=== PATIENT | female | born 1970 | race Two or more races ===

== ENCOUNTER 2016-11-15 15:55 | Emergency (ER) | payer SELFPAY ==
[2016-11-15 16:04] VITALS: BP 129/64; PULSE 62; RESP 17; TEMP 98.1; O2SAT 95
[2016-11-15] MEDS ORDERED: DEXAMETHASONE 4 MG TAB PO ONE (16:26)
[2016-11-15] MEDS ORDERED: hydrOXYzine HCL 25 MG TAB PO ONE (16:28)
--- NOTE | 2016-11-15 16:35 | EDPHY ---
General Narrative: CHIEF COMPLAINT: Rash HISTORY OF PRESENT ILLNESS: patient has a rash over most of her body is been present for over 3 months. It was gradual onset. It has been constant duration. Mild at 1st but now very bothersome to her. Very pruritic to her. Worse with exposure to certain temperatures of water. She has scratched the point that it is blood in some locations. It is on the abdomen, back, arms and legs. It is not on the face. On the palms of the hands or the back of the hands. No fever or chills. No blood thinners. No headache or neck pain. No travel for an ocular lesions. She has been seen at [facility] and diagnosed with a rash and been treated with short course of oral steroid and topical steroid. This was over 3 months ago. No improvement with this. No other associated complaints or modifying factors. All information obtained with the use of the [facility] certified Serbian russian language instructor at bedside. REVIEW OF SYSTEMS: Ten systems reviewed and are negative unless otherwise noted in the HPI EXAMINATION General Appearance: Alert, no distress Head: normocephalic, atraumatic Eyes: Pupils equal and round, no conjunctival pallor or injection ENT, Mouth: Mucous membranes moist . No petechiae or purpura. Uvula midline. No swelling or erythema. Neck: Normal inspection, supple, non-tender . Painless range of motion all planes. No meningismus. Respiratory: Lungs are clear to auscultation Cardiovascular: Regular rate and rhythm . No murmur. Gastrointestinal: Abdomen is soft and nontender . Rash noted. Back: non-tender, no bony abnormalities . Rash noted. Neurological: A&O, nonfocal, normal gait . Strength is symmetric in all limbs. Skin: Warm and dry. There is diffuse rash over the abdomen, lower back, arms and legs. This is primarily over the extensor surface. It is silver -salmon, plaque-like appearance. Consistent with psoriasis. No petechiae. No purpura. No target or bull's eye lesions. Extremities: Nontender, no pedal edema Psychiatric: Mood and affect normal DIFFERENTIAL DIAGNOSES: Including but not limited to Psoriasis, dermatitis, pruritic rash MDM: 4:30 p.m. rash to the trunk and extensor surfaces of all 4 limbs. Also present on the back. It is consistent with psoriasis in appearance. There are some excoriations that do not appear to be infected. She has no lesions of the mouth , lips or tongue. The airway is patent. No acute distress. Treat with short course of steroids and recommend follow up with [facility] for long-term therapy to discuss higher level of medication. The patient is comfortable with this plan. She is to continue the topical corticosteroid that were prescribed to her by [facility]. SUPERVISION: This patient was independently evaluated without the aide of supervising physician. - History Smoking Status: Never smoked - Objective Vital Signs: Initial Vital Signs Temperature (C) 98.1 F 11/15/16 16:01 Heart Rate 62 11/15/16 16:01 Respiratory Rate 17 11/15/16 16:01 Blood Pressure 129/64 H 11/15/16 16:01 O2 Sat (%) 95 11/15/16 16:01 O2 Delivery Mode Room Air Allergies/Adverse Reactions: No Known Allergies Allergy (Verified 11/15/16 15:58) Home Medications: Medication Instructions Recorded Toprol 02/26/14 FLUoxetine 11/15/16 Lisinopril 11/15/16 Metoprolol Succinate 11/15/16 hydrOXYzine HCL [Hydroxyzine HCl] 50 mg PO Q6-8PRN PRN #20 tablet 11/15/16 predniSONE [Deltasone] 60 mg PO DAILY #15 tablet 11/15/16 Medications Given: Discontinued Medications Dexamethasone (Decadron) 8 mg PO EDNOW ONE Stop: 11/15/16 16:27 Last Admin: 11/15/16 16:30 Dose: 8 mg Hydroxyzine HCl (Hydroxyzine Hcl) 25 mg PO Q6HRS ONE Stop: 11/15/16 16:29 Last Admin: 11/15/16 16:55 Dose: 25 mg Departure - Departure Disposition: Home, Routine, Self-Care Clinical Impression: Psoriasis, Pruritic dermatitis Condition: Good Instructions: Psoriasis (ED), Acute Rash (ED), Dermatitis (ED) Additional Instructions: Follow-up with [facility] and [facility] for definitive care. Attempt Selsun Blue (green label) for scalp involvement. Jim un seguimiento con el dermatologo y con la clinica [facility] para cuidado definitivo. Intente Selsun Blue (etiqueta jose) para la implicacion del cuero cabelludo. Referrals: [facility],UN[facility] [Other] - As per Instructions Moustapha Bernardo MD [Medical Doctor] - As per Instructions Prescriptions: hydrOXYzine HCL [Hydroxyzine HCl] 50 mg PO Q6-8PRN PRN #20 tablet PRN Reason: Itching predniSONE [Deltasone] 60 mg PO DAILY #15 tablet Print Language: Serbian
== END 2016-11-15 16:54 | disposition home or self-care (01) ==
DX: L40.9 Psoriasis, unspecified (principal); L30.8 Other specified dermatitis